=== PATIENT | female | born 1980 | race Caucasian/White ===

== ENCOUNTER 2016-09-04 16:10 | Emergency (ER) | payer MEDICAID ==
[~2016-09-04] VITALS: Ht 165.1 cm; Wt 61.7 kg
[2016-09-04] MEDS ORDERED: OLAN5TAB3 PO (16:38)
[2016-09-04 17:09] VITALS: BP 128/78
== END 2016-09-04 17:16 | disposition home or self-care (01) ==
LOC: ED 17:10
DX: T19.2XXA Foreign body in vulva and vagina, initial encounter (principal); F17.210 Nicotine dependence, cigarettes, uncomplicated; Y92.9 Unspecified place or not applicable
CPT/HCPCS: 99283

== ENCOUNTER 2018-02-14 14:57 | Emergency (ER) | payer MEDICAID ==
[~2018-02-14] VITALS: Ht 165.1 cm; Wt 50.5 kg
[~2018-02-14 14:57] MED LIST: OLAN5TAB3 PO
[2018-02-14 15:07] VITALS: BP 103/68
[2018-02-14] MEDS ORDERED: HYDROcodone/APAP 5/325 TABLET PO PRN (16:00)
[2018-02-14] MEDS ORDERED: HYDROcodone/APAP 5/325 TABLET ONE (16:01)
== END 2018-02-14 17:08 | disposition home or self-care (01) ==
LOC: ED 17:00
DX: J01.20 Acute ethmoidal sinusitis, unspecified (principal); J01.10 Acute frontal sinusitis, unspecified; F17.210 Nicotine dependence, cigarettes, uncomplicated
CPT/HCPCS: 70450; 99284